=== PATIENT | female | born 1965 | race Asian ===

== ENCOUNTER 2021-12-07 15:47 | Emergency (ER) | payer BC ==
[~2021-12-07] VITALS: Ht 162.6 cm; Wt 56.4 kg
[2021-12-07 15:55] VITALS: BP 127/72
== END 2021-12-07 17:59 | disposition home or self-care (01) ==
LOC: EMS 15:47
DX: S46.812A Strain of other muscles, fascia and tendons at shoulder and upper arm level, left arm, initial encounter (principal); Z98.890 Other specified postprocedural states; X58.XXXA Exposure to other specified factors, initial encounter; Y93.89 Activity, other specified; Y92.89 Other specified places as the place of occurrence of the external cause; Y99.8 Other external cause status
CPT/HCPCS: 99282; Z7502